=== PATIENT | male | born 1985 | race Caucasian/White ===

== ENCOUNTER → 2020-07-01 15:17 | Outpatient (CLI) | payer OTHER, SELFPAY ==
--- NOTE | ~2020-07-01 | XR_ITS ---
XR cervical spine 4-5V DATE: 07/01/2020 15:37 INDICATION: Neck pain TECHNIQUE: AP, open-mouth, lateral, swimmer views COMPARISON: 08/18/2004 cervical spine FINDINGS: There is straightening of the cervical spine. No fracture or dislocation or locked facet or prevertebral soft tissue swelling. C1 and C2 are normal ly aligned and the odontoid process is intact. There is minimal loss of height and spurring at C5-6 consistent with mild degenerative disc disease. IMPRESSION: Straightening of the cervical spine Mild degenerative disc disease at C5-6 Reviewed, dictated and finalized at location B. T CHANGER
== END ==
PROVIDERS: Visit Provider Chiropractor
DX: M50.30 Other cervical disc degeneration, unspecified cervical region (principal)
CPT/HCPCS: 72050

== ENCOUNTER 2020-10-22 12:22 | Outpatient (CLI) | payer OTHER, SELFPAY ==
[2020-10-22 12:49] LABS: Basophils Absolute Auto 0.1 K/mm3 (0.0-0.1); Basophils Percent Auto 0.9 % (0.2-1.2); Eosinophils Absolute Auto 0.4 K/mm3 (0-0.3); Eosinophils Percent Auto 6.3 % (0-4.4); Hematocrit 43.7 % (42.0-52.0); Hemoglobin 14.6 g/dL (14.0-18.0); Immature Granulocyte Absolute 0.01 K/mm3 (0.00-0.031); Immature Granulocyte Percent A 0.1 % (0-0.5); Lymphocytes Absolute Auto 2.44 K/mm3 (0.9-3.2); Lymphocytes Percent Auto 34.9 % (18.3-44.2); Mean Corpuscular HGB Conc 33.4 g/dl (32-36); Mean Corpuscular Hemoglobin 30.9 pg (26-34); Mean Corpuscular Volume 92.4 fl (80-100); Mean Platelet Volume 11.4 fl (7.4-10.4); Monocytes Absolute Auto 0.5 K/mm3 (0.1-0.6); Monocytes Percent Auto 7.6 % (2.6-8.5); Neutrophils Absolute Auto 3.5 K/mm3 (1.3-6.7); Neutrophils Percent Auto 50.2 % (45.5-73.1); Platelet Count Result 235 k/mm3 (150-375); Red Blood Count 4.73 M/mm3 (4.6-6.20); Red Cell Distribution Width 12.3 % (11.5-14.5)
[2020-10-22 12:56] LABS: Alanine Aminotransferase 21 U/L (4-50); Albumin Level 4.7 g/dL (3.5-5.1); Alkaline Phosphatase 41 U/L (38-126); Anion Gap 9 mmol/L (8-16); Aspartate Amino Transferase 33 U/L (17-59); Bilirubin,Total 0.5 mg/dL (0.2-1.3); Blood Urea Nitrogen 15 mg/dL (9-20); Calcium 9.7 mg/dL (8.4-10.2); Carbon Dioxide 27 mmol/L (22-30); Chloride 106 mmol/L (98-107); Estimated Glomerular Filt Rate > 60; Glucose 88 mg/dL (75-110); Potassium 4.4 mmol/L (3.4-5.0); Sodium 142 mmol/L (137-145)
[2020-10-22 13:05] LABS: INR 0.9; Prothrombin Time 13.2 Seconds (11.1-14.7)
[2020-10-22 13:22] LABS: Iron 117 ug/dL (49-181)
[2020-10-22 13:31] LABS: Percent Iron Saturation 37 % (20-50)
[2020-10-27 10:56] LABS: Ceruloplasmin 21 mg/dL (18-36)
== END 2020-10-22 12:23 | disposition home or self-care (01) ==
DX: R10.84 Generalized abdominal pain (principal); N50.819 Testicular pain, unspecified
CPT/HCPCS: 36415; 80053; 82248; 82390; 82728; 83540; 83550; 85025; 85610

== ENCOUNTER → 2022-08-05 15:27 | Outpatient (CLI) | payer OTHER, SELFPAY ==
--- NOTE | ~2022-08-05 | CT_ITS ---
EXAMINATION: CT sinus wo con DATE: 08/05/2022 15:43 INDICATION: Chronic sinusitis TECHNIQUE: Computed tomography (CT) of the paranasal sinuses was performed without contrast. Iterativ e reconstruction technique was employed. Exam dose: 269.39 mGy-cm total exam DLP. COMPARISON: 08/18/2004 CT brain FINDINGS: Minimal] deviation of the nasal septum. Prominent soft tissue swelling of the middle and inferior nasal turbinates. Bilateral nasal antral windows. Moderate right and severe left maxillary sinus mucoperiosteal thickening. Severe patchy soft tissue o pacification of the ethmoid air cells. Opacified diminutive right frontal sinus. Moderate mucoperiosteal thickening of the left frontal sinu s. Mild mucoperiosteal thickening of the sphenoid sinuses. The mastoid air cells are normally developed and aerated bilaterally. IMPRESSION: Prominent soft tissue thickening of the middle and inferior nasal turbinates, lateral na anali cavities Severe left and moderate right maxillary sinus mucoperiosteal thickening, severe bilateral ethmoid ai r cell opacification Bilateral nasal antral windows Opacified right frontal sinus, moderate mucoperiosteal thickening of left frontal sinus Mild mucoperiosteal thickening of both sphenoid sinuses Reviewed, dictated and finalized at Location A. Reviewed, dictated and finalized at location A. IMPRESSION: Prominent soft tissue thickening of the middle and inferior nasal turbinates, lateral nasal cavities Severe left and moderate right maxillary sinus mucoperiosteal thickening, sever e bilateral ethmoid air cell opacification Bilateral nasal antral windows Opacified right frontal sinus, moderate mucoperiosteal thickening of left front al sinus Mild mucoperiosteal thickening of both sphenoid sinuses
== END ==
DX: J32.9 Chronic sinusitis, unspecified (principal)
CPT/HCPCS: 70486

== ENCOUNTER 2023-04-27 01:20 | Day surgery (SDC) | payer OTHER, SELFPAY ==
--- NOTE | 2023-04-21 07:31 | P.HP_ITS ---
History of Present Illness History of Present Illness Consent: Risks, benefits, and alternatives have been discussed and questions answered. Patient agrees to proceed with procedure. 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 During the course of evaluation he is also been have a left spermatocele which has grown slightly, and become more problematic, over the past 12 months. After discussion of options he is elected for a formal left spermatocele ectomy. He is aware of the risk including, not limited to, recurrence and scrotal hematoma. Review of Systems Review of Systems: All systems reviewed & are unremarkable except as noted in HPI and below Exam Const: General: no acute distress Resp: Effort & Inspection: normal respiratory effort GI: Inspection: non-distended GI Palp: No abdominal tenderness and No Guarding due to palpation present (GI) Auscultation: normal bowel sounds : Other: Moderate left spermatocele Assessment and Plan Assessment and plan (1) Spermatocele of epididymis: Code(s): N43.40 - Spermatocele of epididymis, unspecified Status: Acute Assessment and Plan: * Left spermatocelectomy
[2023-04-24 13:32] VITALS: BMI 22.1
--- NOTE | 2023-04-24 13:38 | PC.NURSE ---
Report to the Outpatient Waiting Room, entrance under the green pavilion located off [facility], at time 0830 on date _04/27/13. Planned Procedure Time: _1030_. Time changes happen often and if your time is changed the preop area will call you the afternoon before. - You and your visitor will be asked to self-screen and do not enter if you have any COVID symptoms. - A mask is optional within the hospital at this time. Patients may have clear liquids (water, carbonated beverages, clear teas, apple juice) until 3 hours prior to surgery with a maximum of 20 ounces. - No food from midnight until time of surgery - Infants may have breast milk until 4 hours before surgery, infant formula 6 hours prior to surgery. - Children will be allowed to drink immediately following surgery. If applicable, please bring a bottle or sippy cup to assist with drinking. Juice, water, soda, and popsicles are readily available. For infants on formula, please bring formula the day of surgery. Pacifiers are allowed. Take the following medications with a SIP of water the morning of surgery: NONE DO NOT STOP ANY OF YOUR OTHER PRESCRIPTION MEDICATIONS PRIOR TO SURGERY ?EXCEPT THE FOLLOWING Medications to discontinue per physician NONE Date to take last dose Please no make-up, nail greek, hairspray, perfume, deodorant, or body powder the day of surgery. No jewelry (including any body piercings) or valuables the day of surgery, leave them at home. Please take a shower or bath the night before, or the morning of, surgery with an antibacterial soap. Wear comfortable, loose fitting clothing. Children are encouraged to wear pajamas. - Jewelry must be removed prior to entering the operating room. Rings and piercings that are not removed may be cut off. - The hospital will not accept responsibility for valuables. - Please leave all valuables, including medications, at home the day of surgery. If you are going home after surgery, a licensed sprinkling truck driver must drive you home. - NO public transportation without another adult if you receive anesthesia. - We recommend that an adult stay with you for 24 hours following discharge. - We also recommend that you do not drive, make important decision, drink alcoholic beverages, or take any drugs that were not prescribed by your health care provider for at least 24 hours after your discharge time. For Pediatric surgeries, we recommend two adults accompany the child home. Follow any additional instructions given to you from your surgeon. If you or anyone in your household have experienced Covid symptoms in the past week, please notify your surgeon or the nurse liaison at the phone number below for possible testing. Telephone instructions given to ___PATIENT__and asked if any additional questions and then verbalized understanding. Patient advised to call surgeon office or pre surgery nurse liaison [phone] if any additional questions.
[2023-04-27] VITALS (13 sets, daily range): BP systolic 100–120; BP diastolic 63–75; PULSE 46–59; RESP 12–20; TEMP 36.2–36.4; O2SAT 97–100
--- NOTE | ~2023-04-27 | US_ITS ---
EXAMINATION: US scrotum doppler DATE: 04/27/2023 15:27 INDICATION: Testicular pain status post left spermatocele-ectomy. TECHNIQUE: Grayscale and Doppler ultrasound images of the testes were obtained. COMPARISON: None. FINDINGS: There is normal vascular flow in both testes. IMPRESSION: 1. Normal vascular flow in both testes. Reviewed, dictated and finalized at location A. L SAW OPERATOR
--- NOTE | 2023-04-27 06:30 | WPDHPUPDATE1 ---
History and Physical Update Update Date/Time: 04/27/23 06:30 History and Physical has been reviewed, including an updated exam of the patient. There are NO changes in the patient's condition. Risks, benefits, and alternatives have been discussed and questions answered. Patient agrees to proceed with procedure.
--- NOTE | 2023-04-27 10:42 | P.PNAN_ITS ---
Anes - Initial Pre Proc Eval Procedure: Operation Date: 04/27/23 10:30 Proposed Procedures p Left Spermatocelectomy - Adarsh Bains MD Date/Time: 04/27/23 10:42 Surgeon: Adarsh Bains MD Pre Op Diagnosis: Lt Spermatocele Patient Data Age: 37 Gender: M Height: 1.78 m Weight: 69.6 kg Last Vital Signs Temp 36.2 C L 04/27/23 08:58 Pulse 58 L 04/27/23 08:58 Resp 16 04/27/23 08:58 BP 114/68 04/27/23 08:58 Pulse Ox 100 04/27/23 08:58 O2 Del Method Room Air 04/27/23 08:58 Allergies Allergy/AdvReac Type Severity Reaction Status Date / Time No Known Allergies Allergy Verified 04/27/23 08:34 Home Medications Medication Instructions Recorded Confirmed Type No Home Medications 04/24/23 04/24/23 History Patient hx anesthesia problems: none Family hx anesthesia problems: none Results Review: All pre-operative results and documents have been reviewed as part of the pre- operative evaluation. [facility] Social History Social History Smoking packs per day: 0.5 Smoking cigarettes per day: 10.0 Years smoked: 20 Smoking pack-years: 10.00 Smoking status: Current every day smoker Tobacco type: cigarettes Alcohol intake: never Living arrangements: with family Anes - Eval Final PreProcedure Day of Procedure 04/27/23 10:42 Patient weight: normal Heart: regular rate and rhythm Lungs: clear to auscultation Airway: Mallampati scale class II Neurological: alert and oriented Last oral intake: >/= 8 hours ASA classification: II Emergent: no Anesthetic plan: proceed Anesthesia type and monitoring: general LMA and standard monitoring Results Review: All pre-operative results and documents have been reviewed as part of the pre- operative evaluation. Informed Consent: The patient's anesthetic plan and its attendant risks and benefits were discussed with the patient/family/POA. Questions were solicited and answers provided to the satisfaction of the patient/family/POA.
[2023-04-27] MEDS: LACTATED RINGERS 1,000 ML 30 ML IV CONT (10:59)
[2023-04-27] MEDS: ceFAZolin 2 GM/D5W 50 ML 2 GM/50 ML BAG IVPB (11:17)
[2023-04-27] MEDS: LIDOCAINE HCL 1% LOCAL INJ 20 ML VIAL 8 ML INFILTRATE (11:51)
--- NOTE | 2023-04-27 11:55 | W.PM.PROC2 ---
Procedure Note - Detailed Date of Procedure 04/27/23 Pre-op Diagnosis Lt Spermatocele Post-op Diagnosis Same Procedure Performed Left spermatocelectomy Surgeon Adarsh Bains MD Anesthesia General Description of Procedure The patient was brought to the operative suite where he was prepped and draped in routine sterile fashion while in a supine position after the uneventful induction of a general LMA anesthetic. An incision was made in the median raphe of the scrotum and dissection was carried into the left tunica vaginalis. There is no appreciable hydrocele but a moderate-large left spermatocele arising from the epididymis. This spermatocele is dissected from the spermatic cord and testicle to its origin from the epididymis. It is transected at its origin with care taken to avoid any injury to the testicle or epididymis. Care was taken to avoid compromise to vessels in the spermatic cord. The testicle was examined and found to be both visibly and palpably normal. The testicle was restore returned to an orthotopic positioned. The dartos muscle was closed with a running 4-0 chromic and the skin was likewise closed with a running 4-0 chromic. Estimated blood loss throughout this procedure was 5cc. Patient tolerated the procedure well and was taken to the recovery room in good condition. Drains No Packing No Pathology Yes Complications No immediate complications
[2023-04-27] MEDS: fentaNYL CITRATE INJ (*CRX) 100 MCG/2 ML VIAL 25 MCG IV PUSH ×6 (12:40→13:50)
[2023-04-27] MEDS: oxyCODONE HCL (*CRX) 5 MG TAB IR PO (13:17)
--- NOTE | 2023-04-27 14:46 | SUR.PHASEII ---
1443 - dr. grey called and updated on pt's c/o severe pain from scrotum. orders received. dr. grey stated that he will come see pt
[2023-04-27] MEDS: KETOROLAC 10 MG TABLET PO (14:54)
--- NOTE | 2023-04-27 15:14 | SUR.PHASEII ---
1502 - dr. grey in room assessing pt. 1510 - u/s in pt room
[2023-04-27] MEDS: HYDROmorphone HCL INJ (*CRX) 1 MG/ML SYR 0.5 MG IV PUSH ×2 (15:33→15:50)
== END 2023-04-27 16:08 | disposition home or self-care (01) ==
PROVIDERS: PCP Nurse Practitioner; Visit Provider Urology
PROC: (CPT 54840; principal; 2023-04-27 10:30)
DX: N43.41 Spermatocele of epididymis, single (principal); N50.812 Left testicular pain; G89.18 Other acute postprocedural pain; F17.210 Nicotine dependence, cigarettes, uncomplicated
CPT/HCPCS: 54840; 76870; 88304; 93976; A9270; J0690; J1100; J1170; J2250; J2405; J2704; J3010; J7120

== ENCOUNTER 2023-05-02 14:08 | Emergency (ER) | payer OTHER, SELFPAY ==
--- NOTE | ~2023-05-02 | US_ITS ---
EXAMINATION: US scrotum doppler DATE: 05/02/2023 16:03 INDICATION: Postoperative left testicular pain and swelling TECHNIQUE: Testicular sonogram utilizing grayscale and Doppler COMPARISON: 04/27/2023 FINDINGS: The right testis measures 5.2 x 2.7 x 2.9 cm. The left testis measures 3.9 x 2.9 x 3.8 cm. There is an approximately 4.9 x 2.6 x 1.5 cm complex fluid collection in the left scrotum. There is n ormal vascular flow to both testes. The right epididymis is normal with normal vascular flow. The lef t epididymis is normal with normal vascular flow. IMPRESSION: 1. Complex fluid collection of the left scrotum which could reflect hematoma/seroma or less likely ab scess. Reviewed, dictated and finalized at location L. TAL PRODUCTION OPERATOR IMPRESSION: 1. Complex fluid collection of the left scrotum which could reflect hematoma/se [place] or less likely abscess.
[2023-05-02 14:22] VITALS: BP 115/68; PULSE 84; RESP 18; TEMP 36.6; O2SAT 100
--- NOTE | 2023-05-02 15:11 | ED.GENADULT ---
HPI - General Adult General Chief complaint: Unspecified Stated complaint: post op complications Time Seen by Provider: 05/02/23 14:43 Source: patient and family Limitations: no limitations History of Present Illness HPI narrative: Patient is a 37-year-old male presents to the emergency department complaining of left testicle pain. Patient is postoperative from a left-sided spermatocele ectomy on April [address] Beltran who he has an appointment with tomorrow morning. Patient states that he had some pain after the surgery and was told ultrasound showed good flow and he had been taking hydrocodone every 6 hours until Monday when he started be feeling better however Monday he went to work and was having lot of discomfort in his left testicle and or back watery was sitting down her standing up and move around and he took 2 more [place] later in the night and the pain has been progressively getting worse since yesterday prompting him to come in for further evaluation. Patient admits to taking his antibiotics to completion and completed them on Monday. Patient notes that the bruising of the left testicle appears to be improving over the swelling has not changed and now the pain is getting worse. Patient denies fever, cough, abdominal pain, vomiting, diarrhea, melena, hematochezia, penile discharge, recent injuries. patient does admit to some discomfort in his left testicle when he urinates. Patient denies urinary frequency or urinary urgency. Related Data Allergies Allergy/AdvReac Type Severity Reaction Status Date / Time No Known Allergies Allergy Verified 04/27/23 08:34 Review of Systems Review of Systems: A 10 system review of systems was completed on the patient and is negative except for what is stated in the HPI. Nursing and ancillary documentation was reviewed. [facility] Social History Social History Smoking packs per day: 0.5 Smoking cigarettes per day: 10.0 Years smoked: 20 Smoking pack-years: 10.00 Smoking status: Current every day smoker Tobacco type: cigarettes Alcohol intake: never Living arrangements: with family Comments At time of signature, I have reviewed and agree with nursing past medical, surgical, social and family history unless otherwise noted. Please see the nursing chart for further information. There is no relevant family history pertinent to the presenting complaint. Exam Narrative: CONST: No acute distress. Well nourished. HENMT: Head is normocephalic and atraumatic. Moist mucous membranes. No posterior oropharynx erythema. EYES: No conjunctival icterus, injection, or pallor. PERRL. NECK: No meningeal signs. RESP: Able to speak in full sentences. Normal respiratory effort. CTAB. CARDIO: Regular rate. Regular rhythm. 2+ DP and radial pulses bilaterally. GI: Nondistended. No tenderness to palpation. Soft. : No CVA tenderness to palpation. left scrotum is mildly edematous with ecchymosis the appears to be resolving, no penile lesions or erythema or tenderness to palpation or discharge. No perineal erythema or crepitus or tenderness to palpation. Moderate tenderness to palpation to the left testicle with mild left testicle edema. Sutures in place over the left scrotum. No palpable scrotal crepitus or fluctuance. No discharge from the scrotal surgical incision site. SKIN: No rashes or lesions noted on exposed skin. NEURO: Oriented x3. Moves all extremities. EXTREM/MSK/BACK: No pedal edema. no midline vertebral tenderness to palpation or step-offs. PSYCH: Normal affect. Course Vital Signs Vital signs: Vital Signs Temperature 97.9 F 05/02/23 14:22 Pulse Rate 84 05/02/23 14:22 Respiratory Rate 18 05/02/23 14:22 Blood Pressure 115/68 05/02/23 14:22 Pulse Oximetry 100 05/02/23 14:22 Oxygen Delivery Room Air 05/02/23 14:22 Temperature 98.0 F 05/02/23 15:30 Pulse Rate 68 12
[2023-05-02 15:30] VITALS: BP 113/68; PULSE 68; RESP 16; TEMP 36.7; O2SAT 100
[2023-05-02 15:34] LABS: Appearance Urine Cloudy (Clear); Bacteria Urine None Seen /hpf; Bilirubin Urine Negative (Negative); Blood Urine Negative (Negative); Color Urine Yellow (Yellow); Glucose Urine UA Negative (Negative); Ketones Urine Negative (Negative); Leukocyte Esterase Ur Negative LEU/UL (Negative); Nitrate Urine Negative (Negative); Non Pathogenic Casts 0-2; Protein Urine Trace mg/dL (Negative); RBC Urine 0-2 /hpf (0-2); Squamous Epithelial Cell Urine None seen /hpf (Few); Urobilinogen Urine 0.2 mg/dL (<2.0); WBC Urine 0-5 /hpf; pH Urine >=9.0 (5.0-9.0)
[2023-05-02 15:35] LABS: Add Urine Microscopic? YES
[2023-05-02] MEDS: SODIUM CHLORIDE 0.9% IV 1,000 ML 999 ML IV CONT (15:43)
[2023-05-02] MEDS: MORPHINE SULFATE (*CRX) 4 MG/ML INJ IV PUSH (15:43)
[2023-05-02] MEDS: ONDANSETRON INJ 4 MG/2 ML VIAL IV PUSH (15:43)
[2023-05-02 15:55] LABS: Basophils Absolute Auto 0.1 K/mm3 (0.0-0.1); Basophils Percent Auto 0.8 % (0.2-1.2); Eosinophils Absolute Auto 0.7 K/mm3 (0-0.3); Eosinophils Percent Auto 6.9 % (0-4.4); Hematocrit 44.7 % (42.0-52.0); Hemoglobin 15.1 g/dL (14.0-18.0); Immature Granulocyte Absolute 0.02 K/mm3 (0.00-0.031); Immature Granulocyte Percent A 0.2 % (0-0.5); Lymphocytes Percent Auto 20.6 % (18.3-44.2); Mean Corpuscular HGB Conc 33.8 g/dl (32-36); Mean Corpuscular Hemoglobin 31.1 pg (26-34); Mean Corpuscular Volume 92.2 fl (80-100); Mean Platelet Volume 11.3 fl (7.4-10.4); Monocytes Absolute Auto 0.9 K/mm3 (0.1-0.6); Monocytes Percent Auto 8.4 % (2.6-8.5); Neutrophils Absolute Auto 6.4 K/mm3 (1.3-6.7); Neutrophils Percent Auto 63.1 % (45.5-73.1); Platelet Count Result 258 k/mm3 (150-375); Red Blood Count 4.85 M/mm3 (4.6-6.20); Red Cell Distribution Width 12.1 % (11.5-14.5); White Blood Count 10.2 K/mm3 (4.5-10.0)
[2023-05-02 16:10] LABS: Alanine Aminotransferase 27 U/L (6-50); Albumin Level 4.5 g/dL (3.5-5.1); Alkaline Phosphatase 50 U/L (38-126); Anion Gap 6 mmol/L (8-16); Aspartate Amino Transferase 29 U/L (17-59); Bilirubin,Total 0.6 mg/dL (0.2-1.3); Blood Urea Nitrogen 13 mg/dL (9-20); Calcium 9.6 mg/dL (8.4-10.2); Carbon Dioxide 24 mmol/L (22-30); Chloride 104 mmol/L (98-107); Estimated CRCL calculation 141 ml/min; Estimated Glomerular Filt Rate > 60; Glucose 85 mg/dL (65-110); Potassium 4.4 mmol/L (3.4-5.0); Sodium 134 mmol/L (137-145)
[2023-05-02 16:23] LABS: Partial Thromboplastin Time 30.1 SECONDS (22.3-36.8); Prothrombin Time 13.9 Seconds (11.1-14.7)
[2023-05-02 16:30] VITALS: BP 106/68; PULSE 68; RESP 16; TEMP 36.6; O2SAT 100
--- NOTE | 2023-05-02 16:54 | WPDURCON ---
Assessment and Plan Assessment and plan (1) Left testicular pain: Code(s): N50.812 - Left testicular pain Status: Acute Assessment and Plan: Small left scrotal hematoma not discernible by exam but identifiable on scrotal ultrasound. No evidence of ischemic compromise to the left testicle. Normal postoperative will scrotal swelling and ecchymosis. I suggest patient lay off work until after [place] ( avoid any exertional activities). I would suggest cephalexin to prophylax against any infectious complications given the small scrotal hematoma. Urology Consult Note HPI Date Seen: 05/02/23 Primary Care Provider: Jessy Jean, PROVIDER RELATIONS REPRESENTATIVE Consult Narrative Narrative: Gunnar Rice is a 37 year old male Presents to the emergency department with left scrotal pain and swelling disproportionate to expected outcome following a spermatocelectomy 5 days ago. Patient had been feeling well until engaged in some minimal activity 2 days ago when the pain and swelling progressed. He denies fevers chills or hematuria Review of Systems Review of Systems: All systems reviewed & are unremarkable except as noted in HPI and below PMFSH Social History Social History Smoking packs per day: 0.5 Smoking cigarettes per day: 10.0 Years smoked: 20 Smoking pack-years: 10.00 Smoking status: Current every day smoker Tobacco type: cigarettes Alcohol intake: never Living arrangements: with family Meds Home Medications and Allergies Home Medications Medication Instructions Recorded Confirmed Type cephalexin 500 mg capsule 500 mg PO Q8H #9 caps 04/27/23 Rx hydrocodone 5 mg-acetaminophen 325 1 - 2 tablet PO Q6H PRN pain #20 04/27/23 Rx mg tablet tabs cephalexin 500 mg tablet 500 mg PO Q8H 5 days #15 tabs 05/02/23 Rx hydrocodone 5 mg-acetaminophen 325 1 tablet PO Q6H PRN pain 3 days 05/02/23 Rx mg tablet #12 tabs Allergies Allergy/AdvReac Type Severity Reaction Status Date / Time No Known Allergies Allergy Verified 04/27/23 08:34 Vital Signs Vital Signs - 24 hr 05/02/23 14:22 05/02/23 15:30 Temperature 97.9 F 98.0 F Pulse Rate 84 68 Respiratory Rate 18 16 Blood Pressure 115/68 113/68 Pulse Oximetry 100 100 Oxygen Delivery Room Air Exam Const: General: no acute distress Resp: Effort & Inspection: normal respiratory effort GI: Inspection: non-distended GI Palp: No abdominal tenderness and No Guarding due to palpation present (GI) Auscultation: normal bowel sounds : Scrotum: ecchymosis (scant), edematous (scant) and other (incision intact, clean and dry) Results Labs 05/02/23 15:33 05/02/23 15:33 Labs: Short CBC 05/02/23 Range/Units 15:33 WBC 10.2 H (4.5-10.0) K/mm3 Hgb 15.1 (14.0-18.0) g/dL Hct 44.7 (42.0-52.0) % Plt Count 258 (150-375) k/mm3 BMP 05/02/23 15:33 Sodium 134 L Potassium 4.4 Chloride 104 Carbon Dioxide 24 BUN 13 Creatinine 0.60 L Glucose 85 Calcium 9.6 Liver Function 05/02/23 Range/Units 15:33 Total Bilirubin 0.6 (0.2-1.3) mg/dL AST 29 (17-59) U/L ALT 27 (6-50) U/L Alkaline Phosphatase 50 (38-126) U/L Albumin 4.5 (3.5-5.1) g/dL Urine 05/02/23 Range/Units 15:20 Urine Color Yellow (Yellow) Urine Appearance Cloudy H (Clear) Urine pH >=9.0 H (5.0-9.0) Ur Specific [place] 1.020 (1.001-1.035) Urine Protein Trace (Negative) mg/dL Urine Glucose (UA) Negative (Negative) mg/dL
[2023-05-02 17:28] VITALS: BP 108/70; PULSE 68; RESP 16; TEMP 36.6; O2SAT 98
== END 2023-05-02 17:28 | disposition home or self-care (01) ==
PROVIDERS: Emergency Provider Student in an Organized Health Care Education/Training Program; PCP Nurse Practitioner
DX: N50.812 Left testicular pain (principal); F17.210 Nicotine dependence, cigarettes, uncomplicated
CPT/HCPCS: 36415; 76870; 80053; 81001; 85025; 85610; 85730; 86850; 86900; 86901; 93976; 96361; 96374; 96375; 99284; J2270; J2405; J7030

== ENCOUNTER 2023-05-14 14:36 | Emergency (ER) | payer OTHER, SELFPAY | END 2023-05-14 16:00 | disposition left against medical advice (07) | LOC: EXPTROY 14:39 | PROVIDERS: Emergency Provider Nurse Practitioner; PCP Nurse Practitioner | DX: Z53.21 Procedure and treatment not carried out due to patient leaving prior to being seen by health care provider (principal) | CPT/HCPCS: 99199 ==